=== PATIENT | female | born 1955 | race African-American/Black ===

== ENCOUNTER → 2020-06-05 | Outpatient (CLI) | payer OTHER | LOC: ULTRA 10:45 | PROVIDERS: ATTEND Internal Medicine Rheumatology | DX: M79.89 Other specified soft tissue disorders (principal) ==

== ENCOUNTER → 2020-06-20 | Outpatient (CLI) | payer OTHER | LOC: CAT 13:22 | PROVIDERS: ATTEND Nurse Practitioner Family | DX: K42.9 Umbilical hernia without obstruction or gangrene (principal); M79.89 Other specified soft tissue disorders ==